=== PATIENT | female | born 1965 | race Caucasian/White ===

== ENCOUNTER 2022-03-08 16:11 | Emergency (ER) | payer OTHER, BC, SELFPAY ==
--- NOTE | ~2022-03-08 | CT_ITS ---
EXAMINATION: CT HEAD WITHOUT CONTRAST CLINICAL INFORMATION: Injury. Rule out fracture or bleeding. COMPARISON: None TECHNIQUE: Contiguous axial imaging was performed from the skull base to vertex without intravenous administration of contrast. This CT examination was performed using dose optimization techniques as appropriate, variously including the following: *Automated exposure control *Adjustment of mA and/or kV according to patient size (this includes techniques or standardized protocols for targeted exams where dose is matched to indication/reason for exam; i.e. extremities or head) *Use of iterative reconstruction technique DLP: 638 mGy-cm FINDINGS: There is no acute intracranial hemorrhage, mass effect, midline shift, extended findings of an acute territorial infarction. There are no extra-axial fluid collections. Maldonado-white differentiation is maintained. No abnormal attenuation within the brain parenchyma. Ventricles and cortical sulci are symmetric and normal. Calvarium is intact. Skull base is intact. Mastoid air cells are clear. The visualized paranasal sinuses are clear. The orbits and their contents are symmetric and unremarkable. The temporomandibular joints are normally located. There is a small amount of soft tissue edema at the left posterior scalp. CT/CT head/brain wo IV con IMPRESSION: No acute intracranial pathology.
[2022-03-08 16:23] VITALS: BP 130/78; BP 145/76; PULSE 71; PULSE 88; RESP 15; TEMP 36.6; O2SAT 100; O2SAT 99; BMI 24.4
--- OUTSIDE RECORDS SUMMARY | 2022-03-08 17:30 | XMS_ITS | Continuity of Care Document ---
:1965 Author Organization [facility] Address [address] [place] [address]- Care Team Providers Name Role Phone Not on Staff, PCP Primary Care Physician Unavailable Encounter [facility] Date(s): 03/01/21 - 03/01/21 [facility] [address] [place] [id number] Discharge Disposition: A-D/C Walkout Attending Physician: Not on Staff, Attending MD Admitting Physician: Not on Staff, Admitting MD Referring Physician: Not on Staff, Referring MD Allergies, Adverse Reactions, Alerts Substance Reaction Severity Status NKA Active Medications No Known Medications Vital Signs Most recent to oldest [Reference Range]: 1 Oxygen Saturation [94-100 %] 100 % (03/01/21 7:25 AM) Pulse Rate [55-90 bpm] 61 bpm (03/01/21 7:25 AM) Blood Pressure [90-138/55-84 mm Hg] 110/62 mm Hg (03/01/21 7:25 AM) Respiratory Rate [16-30 br/min] 16 br/min (03/01/21 7:25 AM) Temperature [96.8-100.4 DegF] 97.8 DegF (03/01/21 7:25 AM) Mode of Delivery (Oxygen) Room air (03/01/21 7:25 AM) Blood pressure sites Arm, right (03/01/21 7:25 AM) Temperature Route Oral (03/01/21 7:25 AM)
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
== END 2022-03-08 21:13 | disposition home or self-care (01) ==
PROVIDERS: Emergency Provider Emergency Medicine
DX: S00.03XA Contusion of scalp, initial encounter (principal); S16.1XXA Strain of muscle, fascia and tendon at neck level, initial encounter; V43.52XA Car driver injured in collision with other type car in traffic accident, initial encounter; R51.9 Headache, unspecified; Y93.89 Activity, other specified; Y92.414 Local residential or business street as the place of occurrence of the external cause; Y99.9 Unspecified external cause status
CPT/HCPCS: 70450; 99284

== ENCOUNTER → 2025-04-24 08:49 | Outpatient (BNVA) | payer OTHER, SELFPAY | PROVIDERS: Visit Provider Emergency Medicine | DX: M20.012 Mallet finger of left finger(s) (principal); S61.213D Laceration without foreign body of left middle finger without damage to nail, subsequent encounter; W26.9XXD Contact with unspecified sharp object(s), subsequent encounter | CPT/HCPCS: 99202 ==

== ENCOUNTER → 2025-05-24 09:02 | Outpatient (BNVA) | payer OTHER, SELFPAY | PROVIDERS: Visit Provider Emergency Medicine | DX: M20.012 Mallet finger of left finger(s) (principal) | CPT/HCPCS: 99213 ==